=== PATIENT | female | born 1945 | race Asian ===

== ENCOUNTER 2017-06-29 06:34 | Day surgery (SDC) | payer MEDICARE, OTHER ==
[2017-06-28 11:22] VITALS: BMI 21.2
[2017-06-29] MEDS ORDERED: fentaNYL CITRATE 250 MCG/5 ML VIAL ONE (07:35)
[2017-06-29] MEDS ORDERED: SUCCINYLCHOLINE CHLORIDE 200 MG/10 ML VIAL ONE (07:35)
[2017-06-29] MEDS ORDERED: PROPOFOL 20 ML ONE (07:35)
[2017-06-29] MEDS ORDERED: LIDOCAINE HCL/PF 2% SDV 5ML VIAL ONE (07:35)
[2017-06-29] MEDS ORDERED: ROCURONIUM BROMIDE 50 MG/5 ML VIAL ONE (07:35)
[2017-06-29] MEDS ORDERED: MIDAZOLAM HCL 2 MG/2 ML SINGLE DOSE VIAL ONE (07:36)
[2017-06-29] MEDS ORDERED: BUPIVACAINE HCL/PF 0.5% (5MG/ML) 10 ML VIAL ONE (07:44)
[2017-06-29] MEDS ORDERED: ceFAZolin SODIUM 1 GM VIAL IVPB ONE (07:44)
[2017-06-29] MEDS ORDERED: GLYCOPYRROLATE 0.2 MG/1 ML VIAL ONE ×2 (08:46)
[2017-06-29] MEDS ORDERED: NEOSTIGMINE METHYLSULFATE 0.5 MG/ML - 10 ML MDV ONE (08:46)
[2017-06-29] MEDS ORDERED: BUPIVACAINE HCL/PF (5 MG/ML) 30 ML VIAL IJ ONE (08:50)
--- NOTE | 2017-06-29 08:52 | OP ---
Operative Note - Note: Operative Date: 06/29/17 Pre-Operative Diagnosis: umbilical hernia. choelithiasis Operation: lap sundeep and umbilical hernia repair Findings: chronically incarcerated umbilical hernia Post-Operative Diagnosis: Same as Pre-op Surgeon: Tone Leiva Manager Search Engine: Erasmo Lua Anesthesia: General Specimens Removed: gall bladder and hernia sac Estimated Blood Loss (mls): 10
[2017-06-29] MEDS ORDERED: ONDANSETRON 4 MG/2 ML VIAL IVPUSH PRN (09:09)
[2017-06-29] MEDS ORDERED: PROMETHAZINE HCL 25 MG/1 ML VIAL IVPUSH PRN (09:09)
[2017-06-29] MEDS ORDERED: oxyCODONE HCL 5 MG TABLET PO PRN (09:09)
--- NOTE | 2017-06-29 09:11 | SURG ---
Surgery Shovel Handle Assembler Note Shovel Handle Assembler: Erasmo Lua PA-C Date of Service: 06/29/17 Diagnosis: Recurrent umbilical hernia. choelithiasis Procedure: Lap cholecystectomy and primary repair of recurrent umbilical hernia I was present for the entirety of the operative procedure. For further detail, please refer to operative report. Visit type - Case Type Case Type: ED Admission - New patient This patient is new to me today: Yes Date on this admission: 06/29/17
[2017-06-29] MEDS ORDERED: LACTATED RINGERS SOLUTION 1,000 ML IV SCH (09:15)
--- NOTE | 2017-06-29 10:13 | OP ---
DATE OF OPERATION: 06/29/2017 PREOPERATIVE DIAGNOSIS: Symptomatic cholelithiasis and umbilical hernia recurrence. SURGEON: MD Rodrigo INTERNAL REVENUE SERVICE AGENT: JOLIE Cervantes COMPLICATIONS: None. BLOOD LOSS: Minimal. CONDITION: Patient tolerated the procedure well. INDICATIONS: This is a 72-year-old female who presented for evaluation for treatment of symptomatic cholelithiasis. The patient was referred by her primary care physician. Upon evaluation and physical examination, patient was found to have a recurrent umbilical hernia. Decision was made to perform both operations in tandem. Risks and benefits were discussed with the patient. The potential for the use of mesh, whether or not there was contamination, and the potential for infection were discussed. DESCRIPTION OF PROCEDURE: In the operating room, patient was placed in supine position. After the induction of general anesthesia, she was prepped and draped in the usual sterile fashion. The operation was begun with a standard periumbilical incision with dissection partially of the sac was accomplished. The sac was entered, and the 12-mm port was introduced through the sac into the peritoneal cavity. Insufflation to a pressure of 15 mmHg was accomplished. Next, a total of three 5-mm ports were introduced, one in the epigastrium, two in the right upper quadrant. The patient was then positioned in a reverse Trendelenburg position. The gallbladder was then retracted superiorly and laterally. Liver appeared to be large, hypertrophic, and partially obscuring the view of the gallbladder. With retraction of the gallbladder superiorly as much as possible, the infundibulum region of the gallbladder was then exposed. The dissection was carried through carefully. It exposed the cystic duct and artery. They were dissected circumferentially. The triangle of Calot was clearly visualized. The critical view of safety was clearly established, and exposure of the cystic duct and dissection of the cystic duct all the way to the common bile duct junction. The common bile duct was then proximal and distal to the cystic duct. At this point, the cystic duct was then doubly ligated and divided with endoclips. The cystic artery was similarly doubly ligated with endoclips and divided with EndoShears. The gallbladder was then dissected off the liver bed with the use of hook dissector. There was some minimal bile contamination that was irrigated and suctioned peripherally. There was a final check for hemostasis that was performed with electrocautery. The gallbladder was then placed in an EndoCatch bag and removed through the umbilical port. The ports were then removed under direct vision. The umbilical incision at this point extended, and the sac was dissected off the skin, which was quite thin. The sac was dissected down to the fascial edges. There was a loop of bowel that was chronically incarcerated and adhesed to the sac. This was gently dissected with the use of Metzenbaum scissors and returned back to peritoneal cavity. The sac was then resected, and the fascia was then closed as a primary repair using 0 Dacron suture, which was placed in a figure-of-8 fashion to close the defect. Final check for hemostasis was performed. The skin was approximated with 3-0 Vicryl and then was closed with 4-0 Monocryl at all port sites as well as the umbilical incision. Dermabond was applied, and the patient was then returned to the recovery room awake, alert, and in stable condition. Marcaine was also applied to all incisions. Dev [id number]
[2017-06-29 12:29] VITALS: TEMP 98
[2017-06-29] MEDS ORDERED: oxyCODONE HCL 5 MG TABLET ONE (12:39)
[2017-06-29] MEDS ORDERED: oxyCODONE HCL 5 MG TABLET PO ONE (12:43)
[2017-06-29 15:20] VITALS: BP 101/70; PULSE 95
--- NOTE | 2017-07-02 16:51 | PATH ---
Surgical Pathology Report Patient Name: MARGY MUNGUIA [facility]. Rec. #: [id number] /Age/Gender: 1945 (Age: 72) / F Account: [id number] Location: [facility] SURGICAL Taken: 06/29/2017 Received: 06/29/2017 Reported: 07/02/2017 Physicians: Tone Leiva M.D. Specimen(s) Received A: GALLBLADDER B: HERNIA SAC Clinical History Acute cholecystitis Final Diagnosis A. GALLBLADDER, LAPAROSCOPIC CHOLECYSTECTOMY: ACUTE AND CHRONIC CHOLECYSTITIS AND CHOLELITHIASIS. B. HERNIA SAC, EXCISION: FIBROMEMBRANOUS AND FIBROADIPOSE TISSUE CONSISTENT WITH HERNIA SAC. Electronically Signed Lynn Dos Santos M.D. Gross Description A. Received in formalin, labeled "gallbladder," is a 7.8 x 2.5 x 2.2 cm. gallbladder with a 0.2 cm. in length portion of cystic duct attached. The outer surface is mares green and varies from smooth to shaggy. The lumen contains green, tenacious bile as well as abundant yellow, irregular choleliths ranging from 0.3-0.6 cm in greatest dimension. The mucosa is mares-green and velvety. The wall of the gallbladder averages 0.1 cm. in thickness. Production Support Engineer sections are submitted in one cassette. B. Received in formalin labeled "hernia sac," is a 4.5 x 1.7 x 0.3 cm portion of mares-gong fibromembranous tissue, consistent with a hernia sac. Production Support Engineer sections are submitted in one cassette. 06/29/201706/29/2017
== END 2017-06-29 15:10 | disposition home or self-care (01) ==
LOC: JASU-SURG 06:34
PROVIDERS: ATTEND Surgery
PROC: 0FT44ZZ Resection of Gallbladder, Percutaneous Endoscopic Approach (ICD-10-PCS; 2017-06-29)
PROC: 0WQF0ZZ Repair Abdominal Wall, Open Approach (ICD-10-PCS; principal; 2017-06-29 07:30)
DX: K80.80 Other cholelithiasis without obstruction (principal); K42.9 Umbilical hernia without obstruction or gangrene
CPT/HCPCS: 88302-TC; 88304-TC; 94760

== ENCOUNTER 2020-02-25 11:09 | Day surgery (SDC) | payer MEDICARE, OTHER ==
[2020-02-25 12:06] VITALS: BMI 23.6
[2020-02-25 15:36] VITALS: BP 122/57; PULSE 104; TEMP 98.4
--- NOTE | 2020-02-27 11:56 | PATH ---
Surgical Pathology Report Patient Name: MARGY MUNGUIA [facility]. Rec. #: [id number] /Age/Gender: 1945 (Age: 74) / F Account: [id number] Location: [facility] Taken: 02/25/2020 Received: 02/25/2020 Reported: 02/27/2020 Physicians: Lynn Edwards M.D. Specimen(s) Received LESION ASCENDING CECAL JUNCTION Clinical History Screening Postoperative diagnosis: Lesion in ascending cecal junction, hemorrhoids, diverticulosis Rule out adenocarcinoma Final Diagnosis ASCENDING CECAL JUNCTION, LESION, BIOPSY: ADENOCARCINOMA, MODERATELY DIFFERENTIATED. SEE COMMENT. Comment: Case seen in intradepartmental review with consensus on diagnosis. Additional studies for Mismatch repair proteins (MMR) are pending and will be reported as an addendum. Significant findings relayed and faxed Dr. Edwards's office ([facility]), 02/27/20. Electronically Signed Lynn Dos Santos M.D. Addendum Reported: 03/01/2020 Addendum Diagnosis Immunohistochemical stains for MisMatch Repair Protein Analysis performed at [facility] in [place], [place] ([id number]) and interpreted at [facility] show the following: RESULTS: HMLH-1 INTACT NUCLEAR EXPRESSION HMSH-2 INTACT NUCLEAR EXPRESSION HMSH-6 INTACT NUCLEAR EXPRESSION PMS2 INTACT NUCLEAR EXPRESSION INTERPRETATION: No loss of nuclear expression of MMR proteins: low probability of microsatellite instability-high (MSI-H) Lynn Dos Santos M.D. Gross Description Received in formalin, labeled "biopsy lesion ascending cecal junction" are 4 mares, irregular portions of soft tissue ranging from 0.1-0.4 cm. in greatest dimension. The specimens are submitted in toto in one cassette. DL/02/26/2020 saudi/02/26/2020
== END 2020-02-25 15:15 | disposition home or self-care (01) ==
LOC: FASU-ENDO 11:09
PROVIDERS: ATTEND Internal Medicine Gastroenterology
PROC: 3E0H8GC Introduction of Other Therapeutic Substance into Lower GI, Via Natural or Artificial Opening Endoscopic (ICD-10-PCS; 2020-02-25)
PROC: 0DBK8ZX Excision of Ascending Colon, Via Natural or Artificial Opening Endoscopic, Diagnostic (ICD-10-PCS; principal; 2020-02-25 12:47)
DX: D64.9 Anemia, unspecified (principal); C18.0 Malignant neoplasm of cecum; K64.0 First degree hemorrhoids; K57.30 Diverticulosis of large intestine without perforation or abscess without bleeding; K63.89 Other specified diseases of intestine
CPT/HCPCS: 82962; 88305-TC